=== PATIENT | female | born 2000 | race Caucasian/White ===

== ENCOUNTER 2025-01-19 04:42 | Emergency (ER) | payer OTHER, SELFPAY ==
[2025-01-19 04:52] VITALS: BP 111/74; BP 112/72; PULSE 78; PULSE 93; RESP 20; TEMP 36.7; O2SAT 100; BMI 23.6
--- NOTE | 2025-01-19 04:53 | ED_ITS ---
HPI - General Adult General Chief complaint: Nausea/Vomiting/Diarrhea Stated complaint: hx diabetes, sick all day, n/v x1 hr Time Seen by Provider: 01/19/25 04:46 Source: patient and EMS Mode of arrival: EMS Limitations: no limitations History of Present Illness ED Provider: Dr. Jessica Olsen HPI narrative: Patient comes to the emergency room complaining of nausea and vomiting all day long. Patient denies diarrhea, denies fever chills, complaining of diffuse abdominal achiness. Patient states that she is type 1 diabetic. Patient states that she usually has pretty good control of her glucose. Per EMS, glucose was in the 140s. Related Data Previous Rx's ?Medication ?Instructions ?Recorded ondansetron 4 mg disintegrating 4 mg PO Q6H PRN nausea and 01/19/25 tablet vomiting #10 tabs Allergies Allergy/AdvReac Type Severity Reaction Status Date / Time nystatin Allergy Mild Rash Verified 01/19/25 04:51 penicillin G Allergy Mild Rash Verified 01/19/25 04:51 amoxicillin Allergy Hives Verified 01/19/25 04:55 Review of Systems 2 Review of Systems: Constitutional : No Weight loss, No Fever, No Chills, No Night Sweats, No Fatigue, No Malaise ENT/Mouth : No Hearing loss, No Ear Pain, No Nasal Congestion, No Sinus Pain, No Hoarseness, No sore throat, No Rhinorrhea, No Swallowing Difficulty Eyes: No Eye Pain, No Swelling, No Redness, No Foreign Body, No Discharge, No Vision Changes Cardiovascular : No Chest Pain, No SOB, No Dyspnea on Exertion, No Orthopnea, No Edema, No Palpitations Respiratory : No Cough, No Sputum, No Wheezing, No Smoke Exposure, No Dyspnea Gastrointestinal : Complaining of nausea and vomiting, no diarrhea No Constipation, No abdominal Pain, No Hematochezia, No Melena Genitourinary : no irregular bleeding, No Dysuria, No Urinary Frequency, No Hematuria, No Urinary Incontinence, No Urgency, No Flank Pain, No Urinary Flow Changes, No Hesitancy Musculoskeletal : No joint pain, No Myalgias, No Joint Swelling Skin : No Skin Lesions, No rash Neuro : No Weakness, No Numbness, No Paresthesias, No Loss of Consciousness, No Dizziness, No Headache Psych : No Anxiety/Panic, No Depression, No SI/HI/AH/VH, No Social Issues, Heme/Lymph: No Bruising, No Bleeding,No Lymphadenopathy Endocrine : No Polyuria, No Polydipsia, No Temperature Intolerance [facility] Past Medical History Medical History (Updated 01/19/25 @ 05:58 by Jessica Olsen MD) Hypothyroidism Type 1 diabetes Social History Social History Advance Directives: No Do you have a plan to hurt others: No Plan Physical Exam ED Vital Signs: Vital Signs - 24 hr 01/19/25 04:52 Temperature 98.0 F Pulse Rate 93 Respiratory Rate 20 Blood Pressure 111/74 Pulse Oximetry 100 Oxygen Delivery Method Room Air BMI result Body Mass Index 23.6 Const Other: Appearance: Alert. Oriented X3. Seems very uncomfortable, nauseous Eyes: Pupils equal, round and reactive to light. ENT: Pharynx normal. Neck: Normal inspection. Neck supple. No lymph nodes noted. No crepitus CVS: Normal heart rate and rhythm. Pulses normal. Normal S1 and S2 Respiratory: No respiratory distress. Breath sounds normal. No Wheezing. No rales Abdomen: Soft and nontender. No rigidity. No distention. Skin: Skin warm and dry. Normal skin color. Normal skin turgor. Extremities: No lower extremity edema. No Lacerations. No Rash Neuro: Oriented X 3. No motor deficit. No sensory deficit. Moving all extremities. No slurred speech. CN 2 through 12 grossly intact Psych: calm, cooperative, normal affect Course Course Course Narrative: All Of patient's labs pending Patient receiving IV fluids and Compazine Medications Administered Discontinued Medications Generic Name Dose Route Start Last Admin Trade Name Freq PRN Reason Stop Dose Admin Sodium Chloride 1,000 mls @ 999 mls/hr 01/19/25 04:51 01/19/25 05:01 Ns IVCONT 01/19/25 05:51 999 mls/hr .Q1H1M ONE Administration Prochlorperazine Edisylate 10 mg 01/19/25 04:52 01/19/25 05:01 Prochlorperazine Edisylate 10 Mg/2 Ml Vial IVPUSH 01/19/25 04:53 10 mg ONCE ONE Administration Medical Decision Making Medical Decision Making [facility] Narrative: My interpretation of labs: Patient's white blood cell count 15, likely reactive leukocytosis. No significant abnormality and chemistry, anion gap closed, glucose 125, magnesium normal, lipase normal, hCG negative. Beta hydroxybutyrate 0.69, patient was hydrated patient's serology tested positive for COVID-19 Patient states that after the IV hydration she feels much better. Patient requesting to be discharged home. I discussed with the patient being medicated with Paxlovid. Patient declined. Differential Diagnosis Differential Diagnoses: The differential diagnosis associated with the presentation includes (DKA, viral syndrome, as above) Admission/Observation Consideration of admission/observation: Escalation of care including admission/observation considered (Given patient's past medical history and initial presentation, observation was considered) Lab Data MDM Lab Attestation statement: I reviewed the patient's lab results. 01/19/25 05:06 01/19/25 05:06 Labs: Lab Results 01/19/25 Range/Units 05:06 WBC 15.0 H (4.8-10.8) X10*3/uL RBC 5.02 (4.20-5.50) X10*6/uL Hgb 15.5 (12.0-16.0) g/dl Hct 44.0 (37.0-47.0) % MCV 87.6 (80.0-98.0) fL MCH 30.9 (27.0-33.0) pg MCHC 35.2 H (31.0-35.0) g/dl RDW 12.5 (11.0-16.0) % Plt Count 341 (160-400) X10*3/uL MPV 9.8 (9.4-12.3) fL Immature Gran % (Auto) 0.4 (0.0-0.4) % Neut % (Auto) 85.5 H (45-73) % Lymph % (Auto) 8.3 L (20-40) % Yates % (Auto) 5.2 (2-11) % Eos % (Auto) 0.5 (0-4) % Baso % (Auto) 0.1 (0-2) % Lymph # (Auto) 1.3 (1.2-4.9) X10*3/uL Yates # (Auto) 0.8 (0.1-1.2) X10*3/uL Eos # (Auto) 0.1 (0.0-0.4) X10*3/uL Baso # (Auto) 0.0 (0.0-0.2) X10*3/uL Abs Immat Gran (auto) 0.06 H (0.00-0.03) X10*3/uL Absolute Neuts (auto) 12.8 H (2.0-8.3) x10*3/uL Absolute Nucleated RBC 0.000 (0.0-0.012) X10*3/uL Nucleated RBC % (auto) 0.0 (0.0-0.2) /100WBC Sodium 138 (135-145) mmol/L Potassium 3.8 (3.3-5.1) mmol/L Chloride 105 (96-108) mmol/L Carbon Dioxide 21 L (22-29) mmol/L Anion Gap 16 (12-20) BUN 9 (9-16) mg/dL Creatinine 0.84 (0.5-1.4) mg/dL Estim Creat Clear Calc 78.2 Estimated GFR > 60 Random Glucose 125 H (60-115) mg/dL Calcium 9.6 (8.4-10.2) mg/dL Magnesium 1.6 (1.6-2.6) mg/dL Total Bilirubin 1.0 (0.0-1.0) mg/dL Direct Bilirubin 0.4 (0.0-0.5) mg/dL AST 30 (5-31) U/L ALT 21 (0-31) U/L Alkaline Phosphatase 83 (39-117) U/L Total Protein 7.8 (6.5-8.0) g/dL Albumin 4.2 (3.5-5.0) g/dL Lipase 36 (8-78) U/L Beta-Hydroxybutyrate 0.69 H (0.02-0.27) mmol/L Beta HCG, Quant < 2 mIU/mL Ethyl Alcohol < 10 mg/dL Influenza Type A (PCR) NEGATIVE (Negative) Influenza Type B (PCR) NEGATIVE (Negative) RSV RNA Qual (PCR) NEGATIVE (Negative) SARS-CoV-2 RNA (RT-PCR) POSITIVE A (Negative) Critical Care Time Critical Care Time Critical Care Time: Yes Total Critical Care Time: 60 Attestation: I have personally provided critical care time. Time includes review of lab data, radiology results, discussion with consultants, and monitoring for potential decompensation. Intervention performed as documented. Discharge Plan Discharge Clinical Impression: COVID-19, Acute dehydration, Nausea & vomiting Patient Disposition: Home, Self-Care Instructions: Dehydration (ED), Acute Nausea and Vomiting (ED), COVID-19 (Coronavirus Disease 2019) (ED) Additional Instructions: Please follow-up with your primary care physician tomorrow. If you have any worsening or new symptoms, please return to the emergency room or call 911 Prescriptions: New ondansetron 4 mg tablet,disintegrating 4 mg PO Q6H PRN (Reason: nausea and vomiting) Qty: 10 0RF Stand Alone Forms: Work/School Release Print Language: Serbian
[2025-01-19] MEDS: Prochlorperazine Edisylate 10 MG/2 ML VIAL IVPUSH (05:01)
[2025-01-19] MEDS: 0.9 % Sodium Chloride 1,000 ML 999 ML IVCONT (05:01)
[2025-01-19 05:09] LABS: Venous Blood Gas Refer to POC result
[2025-01-19 05:10] LABS: MANUAL DIFF FLAG NO
[2025-01-19 05:11] LABS: Basophils Percent Auto 0.1 % (0-2); Eosinophils Absolute Auto 0.1 X10*3/uL (0.0-0.4); Eosinophils Percent Auto 0.5 % (0-4); Hemoglobin 15.5 g/dl (12.0-16.0); Imm Gran Abs Auto 0.06 X10*3/uL (0.00-0.03); Imm Gran Pct Auto 0.4 % (0.0-0.4); Lymphocytes Absolute Auto 1.3 X10*3/uL (1.2-4.9); Lymphocytes Percent Auto 8.3 % (20-40); Mean Corpuscular HGB Conc 35.2 g/dl (31.0-35.0); Mean Corpuscular Hemoglobin 30.9 pg (27.0-33.0); Mean Corpuscular Volume 87.6 fL (80.0-98.0); Mean Platelet Volume 9.8 fL (9.4-12.3); Monocytes Absolute Auto 0.8 X10*3/uL (0.1-1.2); Monocytes Percent Auto 5.2 % (2-11); Neutrophils Absolute Auto 12.8 x10*3/uL (2.0-8.3); Neutrophils Percent Auto 85.5 % (45-73); Platelet Count 341 X10*3/uL (160-400); Red Blood Count 5.02 X10*6/uL (4.20-5.50); Red Cell Distribution Width 12.5 % (11.0-16.0)
[2025-01-19 05:34] LABS: Beta-Hydroxybutyrate 0.69 mmol/L (0.02-0.27)
[2025-01-19 05:36] LABS: Alanine Aminotransferase 21 U/L (0-31); Albumin Level 4.2 g/dL (3.5-5.0); Alkaline Phosphatase 83 U/L (39-117); Anion Gap 16 (12-20); Aspartate Amino Transferase 30 U/L (5-31); Bilirubin Direct 0.4 mg/dL (0.0-0.5); Blood Urea Nitrogen 9 mg/dL (9-16); Calcium 9.6 mg/dL (8.4-10.2); Carbon Dioxide 21 mmol/L (22-29); Chloride 105 mmol/L (96-108); Creatinine Clr Calc Pharmacy 78.2; Estimated Glomerular Filt Rate > 60; Ethanol < 10 mg/dL; Glucose Random 125 mg/dL (60-115); HCG Quantitative < 2 mIU/mL; Lipase 36 U/L (8-78); Magnesium 1.6 mg/dL (1.6-2.6); Potassium 3.8 mmol/L (3.3-5.1); Sodium 138 mmol/L (135-145); Total Protein 7.8 g/dL (6.5-8.0)
--- OUTSIDE RECORDS SUMMARY | 2025-01-19 05:47 | XMS_ITS | Clinical Summary ---
Author Organization [facility] Address [address] [place] [id number] Care Team Providers Care Android Platform Developer Name Role Phone Elias, Meseret Unavailable [phone] Jihan Em DO Primary Care Provider [phone] Elia Dsouza MD Unavailable Allergies Active Allergy Reactions Criticality Noted Date Comments Amoxicillin Hives Medium 09/24/2022 Nystatin Hives Medium 12/22/2015 Medications Continuous Blood Gluc Sensor (DEXCOM G6 SENSOR) USE DIRECTED AN CHANGE EVERY 10 DAYS 020 Active Insulin Infusion Pump (T:SLIM X2 INS PUMP/CONTROL-IQ) device by Does not apply route Active glucagon (EMERGENCY KIT FOR LOW BLOOD SUGAR) 1 MG injection kit 1 mg 021 Active insulin glargine (LANTUS) 100 units/mL injection vial See Instructions, Special Instructions: Up to 40 units/day, Dispense Quantity: 15 mL, Refills: 2, Entered: 12/08/20 11:29:00 EST, Dispense as Written, [id number] 021 Active insulin lispro (ADMELOG) 100 UNIT/ML injection vial See Instructions, Special Instructions: Subcutaneous, adminsiter up to 100 units daily, Dispense Quantity: 90 mL, Refills: 3, Entered: 12/08/20 11:29:00 EST, Dispense as Written, [facility][id number] 021 Active Continuous Blood Gluc Transmit (DEXCOM G6 TRANSMITTER) USE DIRECTED, CHANGE EVERY 3 MONTHS Active levothyroxine (SYNTHROID) 125 MCG tablet Take 0.5 tablets (62.5 mcg total) by mouth daily Active clobetasol propionate 0.05 % topical scalp solution Apply 1 application topically 2 (two) times a day 50 mL 1 022 Active BAQSIMI One Pack 3 MG/DOSE nasal powder Active albuterol sulfate (VENTOLIN HFA) 108 (90 Base) MCG/ACT inhalation aerosol Inhale 1 puff every 4 (four) hours as needed for wheezing or shortness of breath 8 g 023 Active fluticasone propionate (FLOVENT HFA) 110 MCG/ACT inhalation aerosolIndicatio ns:Subacute cough Inhale 2 puffs 2 (two) times a day . Rinse mouth after use. 12 g 023 Active fluconazole (DIFLUCAN) 150 MG tablet Take 1 tablet (150 mg) by mouth. If symptoms continue after 72 hours take second dose 2 tablet Active Additional Information Patient not taking.Reported on 10/10/2024 benzonatate 100 MG capsuleIndicatio ns:Cough Take 1 capsule (100 mg total) by mouth every 8 (eight) hours 21 capsule Active clindamycin phosphate 1 % topical solution APPLY TO AFFECTED AREA TWICE A DAY 60 mL 024 Active lisinopril 2.5 MG tablet Take 1 tablet (2.5 mg total) by mouth daily 90 tablet 3 024 Active TRI-ESTARYLLA 0.18/0.215/0.25 MG-35 MCG tabletsIndicatio ns:Encounter for surveillance of contraceptive pills TAKE 1 TABLET BY MOUTH EVERY DAY 84 tablet 3 025 Active sertraline 50 MG tablet Take 1 tablet (50 mg total) by mouth daily 90 tablet 1 025 Active norgestimate-eth inyl estradiol (TRI-ESTARYLLA) 0.18 mg/0.035 mg, 0.215 mg/0.035 mg and 0.25 mg/0.035 mg tabletsIndicatio ns:Encounter for surveillance of contraceptive pills Take 1 tablet by mouth daily 84 tablet 3 024 2024 Discontinued sertraline (ZOLOFT) 50 MG tablet TAKE 1 TABLET BY MOUTH EVERY DAY 90 tablet 1 024 2024 Discontinued(R yuan) Active Problems Problem Noted Date Diagnosed Date Asthma, mild intermittent, well-controlled 07/18 Type 1 diabetes mellitus without complications 1 Overview (06/26/2020): Last Assessment & Plan: Managed by [facility] endocrin Adjustment disorder with mixed anxiety and depre ssed mood 09/04/2015 Overview (06/26/2020): Last Assessment & Plan: Doing well on sertraline 100mg. She continues to see Veronica Herr Q2-3 weeks, more often when needed. We discussed decreasing her dose of sertraline possibly this summer, if things continue to go well. Jeronimo's disease Resolved Problems Problem Noted Date Diagnosed Date Resolved Date Uncontrolled type 1 diabetes mellitus with hyperglycemia 06/26/2020 07/18/2024 Depression 07/18/2024 Diabetes mellitus 06/26/2020 Overview (12/22/2015): TYPE 1, DIAGNOSED 12/02/2007 Thyroid disease 07/18/2024 Encounters Date Type Department Care Team Description 01/01/2025 Refill [facility] [address] [place] [phone] Jihan Em DO 12/26/2024 Refill [facility] [address] [place] [address], [place] [phone] Rinku Bobby DO Encounter for surveillance of contraceptive pills 11/23/2024 9:00 AM EST Nutrition [facility] - [address] [phone] Una Parra MD Henzy, Beryl, RD Type 1 diabetes mellitus without complications (HCC) (Primary Dx); Jeronimo's disease; Encounter for dietary counseling and surveillance 11/23/2024 Refill [facility] [address], [place] [phone] Jihan Em, from Last 3 Months Immunizations Name Administration Dates Next Due DTaP, Unspecified 01/09/2003, 9,1998,05/19,1998 H1N1 All Forms 09/30/2009 H1N1 Inj 09/30/2009 HPV Quadrivalent 03/26/2013,09/19/2012, 2 Hep A, 2 Dose 09/09/2016 Hep B, Unspecified 1998,1998, 998 Hepatitis A 07/18/2024 Hepatitis B, Pediatric/Adolescent, PF 1998 ,1998,1998 HiB 07/09/1999, 8,1998,03/14 IPV 01/09/2003, 9,1998,03/14 Influenza (Flublok), Egg Missael e, Quadrivalent, Preservative Free 01/09/2021 Influenza (Flucelvax), Egg F ree, Quadrivalent with Preservative 07/28/2017,09/09/2016,09/03/2015,08/02,12/14/2013,09/19/2012,11/12/2010 ,08/01/2009 Influenza TIV (IM) 08/28/2015 Influenza, Quadrivalent, Pre servative Free 08/08/2019,09/25/2018 Influenza, Split Virus, Triv alent with Preservative 07/28/2017,09/09/2016 Influenza, Trivalent, Preser vative Free 11/12/2010,08/01/2009 J&J Sondra (Covid-19) Adeno virus Vaccine, Preservative Free 08/03/2021 MMR 01/09/2003,01/27/1999 Meningococcal MCV4P 12/03/2010 Meningococcal, Unspecified 09/03/2015 TDAP 04/14/2023,12/03/2010 Varicella 07/14/2012,01/27/1999 Family History Medical History Relation Name Comments No Known Problems Brother 1 No Known Problems Brother 2 No Known Problems Father HIV Mother Cancer Paternal Grandfather Bladder Breast cancer Paternal Grandmother Relation Name Status Comments Brother 1 Alive Brother 2 Alive Father Alive Maternal Grandmother Alive Mother Alive Paternal Grandfather Alive Paternal Grandmother Alive Social History Tobacco Use Types Packs/Day Years Used Date Smoking Tobacco: Every Day Passive Smoke Exposure: Never Smokeless Tobacco: Never Tobacco Cessation:Ready to Q uit: Not Asked; Counseling Given: Not Answered Passive Exposure Comments:Vaping Alcohol Use Standard Drinks/Week Comments No 0 (1 standard drink = 0.6 oz pur e alcohol) Housing Stability - SDOH Screener Answer Date Recorded What is your living situation today? Steady hous ing 07/18/2024 Do you need help with Housing/Skilled Nursing resources? Not on file 07/18/2024 Patient indicated no issues from the most recent SDOH questionnaire Not on file 07/18/2024 Homeless diagnosis active in problem list or in an encounter in the past year? Not on file 07/18/2024 Health Literacy - SDOH Screener Answer Date Recorded Do you ever need help readin g or understanding information about your medical conditions? No 07/18/2024 Patient indicated no issues from the most recent THRIVE questionnaire Not on file 07/18/2024 Oral Health - SDOH Screener Answer Date Recorded Was there a time you needed dental care in the last 12 months but was not received? No 07/18/2024 Patient indicated no issues from the most recent THRIVE questionnaire Not on file 07/18/2024 Transportation - SDOH Screener Answer D ate Recorded Do you have trouble getting transportation to medical appointments? No 07/18/2024 Do you need help with Transp ortation to medical appointments? Not on file 07/18/2024 Patient indicated no issues from the most recent SDOH questionnaire Not on file 07/18/2024 Food Insecurity - SDOH Screener Answer Date Recorded Within the past 12 months, t he food you bought just didn't last and you didn't have money to get more? Sometimes true Within the past 12 months, y ou worried whether your food would run out before you got money to buy more? Never true 2023 Do you need help with Food resources? Not on shimon e 07/18/2024 Patient indicated no issues from the most recent SDOH questionnaire Not on file 07/18/2024 Depression Answer Date Recorded PHQ-9 Total Score 3 07/18/2024 [place] Depression Scale Score Not o n file 07/18/2024 EPDS: The thought of harming myself has occurred to me Not on file 07/18/2024 PHQ-A: In the past year have you felt depressed or sad most days, even if you felt okay sometimes? Not on file 07/18/2024 PHQ-A: If you are experienci ng any of the problems on this form, how difficult have these problems made it for you to do your work, take care of things at home or get along with other people? Not on file 07/18/2024 PHQ-A: Has there been a time in the past month when you have had serious thoughts about ending your life? Not on file 06/29 PHQ-A: Have you ever, in you r whole life, tried to kill yourself or made a suicide attempt? Not on file 07/18/2024 PHQ9/A: Thoughts that you wo uld be better off , or of hurting yourself in some way? No 07/18/2024 Care Giving - SDOH Screener Answer Date Recorded Do you have trouble taking c are of a child, family member or friend? No 07/18/2024 Do you need help with Childcare/Daycare? Not on file 07/18/2024 Do you need help with Elder Care Not on file 07/18/2024 Patient indicated no issues from the most recent SDOH questionnaire Not on file 07/18/2024 Employment - SDOH Screener Answer Date Recorded Are you currently unemployed and looking for a j ob? No 07/18/2024 Are you or your parent/guard gabrielle currently unemployed and looking for a job? (age <= 21) Not on file 07/18/2024 Patient indicated no issues from the most recent THRIVE questionnaire (<22) Not on file 07/18/2024 Patient indicated no issues from the most recent THRIVE questionnaire (22+) Not on file 07/18/2024 Affording Medications - SDOH Screener Answer Date Recorded Do you have trouble paying for medications? Yes 07/18/2024 Do you need help with Paying for Medicine resour rubio? Not on file 07/18/2024 Patient indicated no issues from the most recent SDOH questionnaire Not on file 07/18/2024 Utilities - SDOH Screener Answer Date R ecorded Do you have trouble paying y our heating and/or electricity bill? Yes 07/18/2024 Do you need help with Utilities? Not on file 07/18/2024 Patient indicated no issues from the most recent SDOH questionnaire Not on file 07/18/2024 Social Isolation - SDOH Screener Answer Date Recorded Are you dissatisfied with ho w often you see or talk to people that you care about and feel close to? (For example: talking to friends on the phone, visiting friends or family, going to latter-day or club meetings) No 07/18/2024 Patient indicated no issues from the most recent THRIVE questionnaire Not on file 07/18/2024 Adolescent Depression Answer Date Recor ded PHQ-9 Total Score 3 07/18/2024 [place] Depression Scale Score Not o n file 07/18/2024 EPDS: The thought of harming myself has occurred to me Not on file 07/18/2024 PHQ-A: In the past year have you felt depressed or sad most days, even if you felt okay sometimes? Not on file 07/18/2024 PHQ-A: If you are experienci ng any of the problems on this form, how difficult have these problems made it for you to do your work, take care of things at home or get along with other people? Not on file 07/18/2024 PHQ-A: Has there been a time in the past month when you have had serious thoughts about ending your life? Not on file 06/29 PHQ-A: Have you ever, in you r whole life, tried to kill yourself or made a suicide attempt? Not on file 07/18/2024 PHQ9/A: Thoughts that you wo uld be better off , or of hurting yourself in some way? No 07/18/2024 Comments No Sex and Gender Information Value Date Recorded Sex Assigned at Female 09/02/2022 11:55 AM EDT Legal Sex Female 9:22 PM EDT Gender Identity Female 09/02/2022 11:55 AM EDT Sexual Orientation _I choose not to answer 08/21 /2024 12:22 PM EDT Last Filed Vital Signs Vital Sign Reading Time Taken Comments Blood Pressure 115/62 10/10/2024 12:54 PM EST Pulse 79 10/10/2024 12:54 PM EST Temperature 37.4 ??C (99.3 ??F) 08/13/2024 12:17 PM E DT Respiratory Rate 16 08/13/2024 12:17 PM EDT Oxygen Saturation 98% 10/10/2024 12:54 PM EST Inhaled Oxygen Concentration - - Weight 53.1 kg (117 lb) 10/10/2024 12:54 PM EST Height 149.9 cm (4' 11 ) 10/10/2024 12:54 PM EST Body Mass Index 23.63 10/10/2024 12:54 PM EST Plan of Treatment Upcoming Encounters Date Type Department Care Team (Late st Contact Info) Description 01/21/2025 1:30 PM EST Office Visit [facility] [address] [place] [phone] Jazmyne Dubose NP [address] [place] [phone] 01/29/2025 3:30 PM EST Office Visit [facility] [address], [place] [address] Jojo Magallanes NP [address] [place] [address] 07/22/2025 2:00 PM EDT Office Visit [facility] [address] [place] [phone] Jazmyne Dubose NP [address] [place] [address] [place] [address] Health Maintenance Due Date Last Done Comments Diabetes Retinopathy Screening 2016 Hepatitis B Screening 2016 COVID-19 Vaccine ( season) 2024 08/03/2021 Influenza Vaccine (#1) 2024 , 08/08/2019, 09/25/2018, Additional history exists Diabetes A1c Monitoring 01/18/2025 07/18/20 24, 07/25/2023, 04/07/2022, Additional history exists Annual Physical 07/18/2025 07/18/2024, 03/28, 04/02/2022, Additional history exists Diabetes Foot Screening 07/18/2025 07/18/2024 Pneumococcal Vaccines 0-64 yrs (includes High Risk) (1 of 2 - PCV) 07/18/2025 Postponed from 2004 (Patient Declined) Diabetes LDL Screening 07/19/2025 07/19/2024, 2022 Diabetes Nephropathy Screening 08/02/2025 08/02/2024, 07/18/2024 Diabetes eGFR Screening 10/10/2025 10/10/20 24, 07/19/2024, 07/28/2022, Additional history exists Cervical Cancer Screening by Pap 07/18/2027 07/18/2024, 11/09/2019 DTaP,Tdap,and Td Vaccines (8 - Td or Tdap) 04/14/2033 04/14/2023, 12/03/2010, 01/09/2003, Additional history exists HIB Vaccines Completed 07/09/1999, 06/28, 1998, Additional history exists Hepatitis A Vaccine Completed 07/18/2024, 6 Procedures Procedure Name Priority Date/Time Associated Diagnosis Comments AMB REFERRAL TO NUTRITION SERVICES First Available/Marc adler 11/23/2024 11:53 AM EST Type 1 diabetes (HCC) BASIC METABOLIC PANEL Routine 10/10/2024 1:31 PM EST Type 1 diabetes (HCC) LIPID PANEL Routine 07/19/2024 10:12 AM EDT Routine general medical examination at a health care facility MICROALBUMIN WITH CREAT, RANDOM URINE Routine 07/18/2024 2:45 PM EDT Type 1 diabetes mellitus without complications (HCC) LIQUID-BASED PAP TEST Routine 07/18/2024 2:45 PM EDT Encounter for screening for cervical cancer POCT GLYCOSYLATED HEMOGLOBIN (HGB A1C) Routine 07/18/2024 2:11 PM EDT Type 1 diabetes mellitus without complications (HCC) DIABETIC FOOT EXAM Routine 07/18/2024 2: 00 PM EDT Type 1 diabetes mellitus without complications (HCC) from Last 3 Months or Most Recently Relevant to Health Maintenance Results * Outpatient referral to Nutrition Services (11/23/2024 11:53 AM EST) Una Parra MD OUTPATIENT REFERRAL ORDERAB LES Final Result * (ABNORMAL) Basic metabolic panel (10/10/2024 1:31 PM EST) Sodium 135(L) 136 - 145 mEq/L 10/10/2024 7:38 PM [facility] Potassium 3.6 3.5 - 5.1 mEq/L 10/10/2024 7:38 PM [facility] Chloride 103 98 - 109 mEq/L 10/10/2024 7:38 PM [facility] CO2 26 20 - 31 mEq/L 10/10/2024 7:38 PM [facility] Anion Gap 6 4 - 15 mEq/L 10/10/2024 7:38 PM [facility] Glucose 111(H) 70 - 100 mg/dL 10/10/2024 7:38 PM [facility] Creatinine 0.84 0.50 - 1.00 mg/dL 10/10/2024 7:38 PM [facility] eGFR (Female) >60 60 - 115 mL/min 10/10/2024 7:38 PM [facility] BUN 8(L) 9 - 23 mg/dL 10/10/2024 7:38 PM [facility] Calcium 9.5 8.7 - 10.4 mg/dL 10/10/2024 7:38 PM [facility] Blood Venipuncture / Unknown 10/10/2024 1:31 PM EST 10/10/2024 1:31 PM EST us Una Parra MD LAB BLOOD ORDERABLES Final Result Performing Organization Address [facility] de Phone Number [facility] [address] [place] [address] * (ABNORMAL) Lipid panel (07/19/2024 10:12 AM EDT) Cholesterol 196 <200 mg/dL 07/19/2024 2:43 PM EDT [facility] Triglycerides 69 <150 mg/dL 07/19/2024 2:43 PM EDT [facility] HDL 77.1 >=60.0 mg/dL 07/19/2024 2:43 PM EDT [facility] LDL Calculated 105(H) 0 - 100 mg/dL 07/19/2024 2:43 PM EDT [facility] Cardiac Risk Factor 2.5 0.0 - 4.4 07/19/2024 2:43 PM EDT [facility] Blood Venipuncture / Unknown 07/19/2024 10:12 AM EDT 07/19/2024 10:12 AM EDT Narrative [facility] - 07/19/2024 2:43 PM EDT Cardiac Risk Factor: ?Males ? Females 2x Average Risk ?9.6 ?7.1 3x Average Risk ? 23.4 ? 11.0 us Jazmyne Dubose STUDENT ACTIVITIES DIRECTOR LAB BLOOD ORDERABLES Final Re sult Performing Organization Address [facility] Co de Phone Number [facility] [address] [place] [address] * Liquid-Based Pap Test (07/18/2024 2:45 PM EDT) Case Report Gynecologic Cytology ?Case: [id number] ? Authorizing Provider: ??Jazmyne Dubose NP ?Collected: ? 07/18/2024 1445 ? Ordering Location: ? [facility] ?Received: ?07/18/2024 1445 ? Group ? First Screen: ?Randi Honeycutt ? Specimen: ?Liquid-Based Pap, Screening, Cervix, Cloudy ? 07/31/2024 12:01 PM EDT [facility] Embedded Images 12:01 PM EDT [facility] Interpretation NEGATIVE FOR INTRAEPITHELIAL LESION OR MALIGNANCY 07/31/2024 12:01 PM EDT [facility] Other Findings Interpretation Performed at [facility] site of [facility] 07/31/2024 12:01 PM EDT [facility] Specimen Adequacy Satisfactory for evaluation, endocervical/alcantar sformation zone component present 07/31/2024 12:01 PM EDT [facility] Clinical Information Z12.4 Encounter for screening for cervical cancer 07/31/2024 12:01 PM EDT [facility] HPV Reflex? HPV High Risk Reflex if Atypical (age >21) 07/31/2024 12:01 PM EDT [facility] Additional Information The Pap test is a generally effective screening test for squamous cervical cancer and its precursors. However, both false negative and false positive results occur. Results are most reliable when an adequate sample is evaluated on a regular repetitive basis and clinically correlated. Suspicious signs or symptoms may warrant follow-up studies regardless of Pap test findings. This report may contain complex medical terminology and you should discuss this report with the clinician who ordered this test to ensure appropriate understanding of the findings. 07/31/2024 12:01 PM EDT [facility] Genital Cervix uteri structure / Unknown Collection / Unknown 07/18/2024 2:45 PM EDT 07/18/2024 2:45 PM EDT Jazmyne Dubose NP PATHOLOGY/CYTOLOGY ORDERABLES Final Result [facility] [place] [address] * (ABNORMAL) Microalbumin with Creat, Random Urine (07/18/2024 2:45 PM EDT) Microalb, Ur 22.4(H) 0.0 - 1.9 mg/dL 07/18/2024 5:58 PM EDT [facility] Creatinine, Ur 37.0 20.0 - 400.0 mg/dL 07/18/2024 5:58 PM EDT [facility] Microalb Creat Ratio 605.41(H) 0.00 - 24.90 mcg/mg 07/18/2024 5:58 PM EDT [facility] Urine Collection / Unknown 07/18/2024 2:45 PM EDT 07/18/2024 2:45 PM EDT Jazmyne Dubose NP URINE ORDERABLES Final Result [facility] [address] [place] [address] * (ABNORMAL) POCT glycosylated hemoglobin (Hb A1C) (07/18/2024 2:11 PM EDT) Hemoglobin A1C, POC 7.1(H) 4-6% Comment: %HbA1c : Interpretation of results 4 - 6 ??: Non-Diabetic Range 7 ?: ADA Target 8 - 12 : Above ADA Target ADA ?: [place] [employer] Blood 07/18/2024 2:11 PM EDT us Jazmyne Dubose NP POINT OF CARE TEST ORDERABLES Final Result * Diabetic Foot Exam (07/18/2024 2:00 PM EDT) Narrative Jazmyne Dubose NP - 07/18/2024 2:00 PM EDT Jazmyne Dubose NP ? 07/18/2024 ??4:00 PM Diabetic Foot Exam Performed by: Jazmyne Dubose NP Authorized by: Jazmyne Dubose NP ?? Does the patient have numbness or tingling?: No ?? Right Foot Rt Dorsalis pedis: ??2+ Monofilament test abnormal?: No ?? Sites tested: ??8 Sensed: ??8 Vibratory sensation abnormal?: No ?? Visual inspection (including web spaces) abnormal?: No ?? Left Foot Lt Dorsalis pedis: ??2+ Monofilament test abnormal?: No ?? Sites tested: ??8 Sensed: ??8 Vibratory sensation abnormal?: No ?? Visual inspection (including web spaces) abnormal?: No ?? Patient received patient education ?? us Jazmyne Dubose NP PROCEDURE/MINOR SURGICAL ORDE RABLES Final Result from Last 3 Months or Most Recently Relevant to Health Maintenance Insurance [facility] [employer] OTHER BILL TO EMPLOYER [email or web address] [facility] [employer] [facility] Care Teams Android Platform Developer Relationship Specialty Start Date End Date Meseret Griffin DO PCP - Family Medicine 03/09/15 Jihan Em DO [address] [place] [id number] PCP - General Family Medicine 01/08/21 Elia Dsouza [place] [address] Physician Orthopedic Surgery 04/21/23
--- OUTSIDE RECORDS SUMMARY | 2025-01-19 05:47 | XMS_ITS | Encounter Summary ---
Author Organization [facility] Address [address] [place] [address] Care Team Providers Care Office Rental Clerk Name Role Phone Elias, Meseret Unavailable Jihan Em DO Primary Care Provider [phone] Elia Dsouza MD Unavailable Reason for Visit * Reason Comments Medication Refill Encounter Details Date Type Department Care Team (Late st Contact Info) Description 12/26/2024 Refill [facility] [address], [place] [phone] Rinku Bobby DO [address] [address] Encounter for surveillance of contraceptive pills Social History Tobacco Use Types Packs/Day Years Used Date Smoking Tobacco: Every Day Passive Smoke Exposure: Never Smokeless Tobacco: Never Passive Exposure Comments:Tamika ping Alcohol Use Standard Drinks/Week Comments No 0 (1 standard drink = 0.6 oz pur e alcohol) Housing Stability - SDOH Screener Answer Date Recorded What is your living situation today? Steady hous ing 07/18/2024 Do you need help with Housing/Assisted resources? Not on file 07/18/2024 Patient indicated [...] Date Recorded PHQ-9 Total Score 3 07/18/2024 [place] Depression Scale Score Not o n file [...] phone, visiting friends or family, going to mandaen or club meetings) No 07/18/2024 Patient indicated no issues from the most recent THRIVE questionnaire Not on file 07/18/2024 Adolescent Depression Answer Date Recor ded PHQ-9 Total Score 3 07/18/2024 [place] Depression Scale Score Not o n file [...] Sexual Orientation _I choose not to answer 07/18 12:22 PM EDT documented as of this encounter Miscellaneous Notes * Telephone Encounter - Shira Alberto - 12/27/2024 2:01 PM EST Scheduled annual w/ Jojo for 01/2025 please pend refill * Telephone Encounter - Hemalatha Vance - 12/26/2024 3:33 PM EST I called and left voicemail message that an appt is needed before refilling medication. documented in this encounter Plan of Treatment Upcoming Encounters Date Type Department Care Team (Late st Contact Info) Description 01/21/2025 1:30 PM EST Office Visit [facility] [address] [place] [phone] Jazmyne Dubose NP [address] [address] 01/29/2025 3:30 PM EST Office Visit [facility] [address], [place] [address] Jojo Magallanes, MONOGRAM TECHNICIAN [address] [place] [address] 07/22/2025 2:00 PM EDT [facility] [address] [place] [phone] Jazmyne Dubose, MONOGRAM TECHNICIAN [address] [address] documented as of this encounter Visit Diagnoses Diagnosis Encounter for surveillance of contraceptive pills documented in this encounter Care Teams Office Rental Clerk Relationship Specialty Start Date End Date Meseret Griffin DO PCP - Family Medicine 03/09/15 Jihan Em DO [address] [place] [address] PCP - General Family Medicine 01/08/21 Elia Dsouza MD [place] [address] Physician Orthopedic Surgery 04/21/23 documented as of this encounter
--- OUTSIDE RECORDS SUMMARY | 2025-01-19 05:47 | XMS_ITS | Encounter Summary ---
Author Organization [facility][Note 3] Address [address] [place] [address] Care Team Providers Care Tubing Machine Operator Name Role Phone EliasMeseret matta Unavailable [phone] Jihan Em DO Primary Care Provider [phone] Elia Dsouza MD Unavailable [phone] Reason for Visit * Reason Onset Date Comments Medication Refill 01/01/2025 Encounter Details Date Type Department Care Team (Late st Contact Info) Description 01/01/2025 Refill [facility] [address] [place] [address] Jihan Em DO [address] [place] [address] Social History Tobacco Use Types Packs/Day Years Used Date Smoking Tobacco: Every Day Passive Smoke Exposure: Never Smokeless Tobacco: Never Passive Exposure Comments:[place] Alcohol Use Standard Drinks/Week Comments No 0 (1 standard drink = 0.6 oz pur e alcohol) Housing Stability - SDOH Screener Answer Date Recorded What is your living situation today? Steady hous ing 07/18/2024 Do you need help with Housing/Residential resources? Not on file 07/18/2024 Patient indicated [...] Date Recorded PHQ-9 Total Score 3 07/18/2024 [place] Depression Scale Score Not o n file [...] phone, visiting friends or family, going to amish or club meetings) No 07/18/2024 Patient indicated no issues from the most recent THRIVE questionnaire Not on file 07/18/2024 Adolescent Depression Answer Date Recor ded PHQ-9 Total Score 3 07/18/2024 [place] Depression Scale Score Not o n file [...] encounter Miscellaneous Notes * Telephone Encounter - Jane Andrade MA - 01/01/2025 9:14 AM EST Last Visit in department: 07/18/2024 Next Visit in department: 01/21/2025 Last Annual Visit in department: 07/18/2024 No Shows in department since Last Appt: 2 The current prescription passed protocol. Last script ordered on 02/13/24 for 90/1 (quantity/refill). The attached script pended for 90/1 (quantity/refill). Actions taken: routed to provider documented in this encounter Plan of Treatment Upcoming Encounters Date Type Department Care Team (Late st Contact Info) Description 01/21/2025 1:30 PM EST Office Visit [facility] [address] [place] [phone] Jazmyne Dubose, MEDICAL EDUCATOR [address] [address] 01/29/2025 3:30 PM EST [facility] [address], [facility] [place] [address] Jojo Magallanes, MEDICAL EDUCATOR [address] [place] [address] 07/22/2025 2:00 PM EDT [facility] [address] [place] [phone] Jazmyne Dubose, SALMA [address] [place] [address] documented as of this encounter Visit Diagnoses Not on filedocumented in this encounter Care Teams Tubing Machine Operator Relationship Specialty Start Date End Date Meseret Griffin DO PCP - Family Medicine 03/09/15 Jihan Em DO [address] [place] [address] PCP - General Family Medicine 01/08/21 Elia Dsouza MD [address] [facility] [address] Physician Orthopedic Surgery 04/21/23 documented as of this encounter
--- OUTSIDE RECORDS SUMMARY | 2025-01-19 05:47 | XMS_ITS | Encounter Summary ---
Author Organization [facility] Address [address] [place] [address] Phone Care Team Providers Care Health Analytics Consultant Name Role Phone Meseret Griffin DO Primary Care Provider [phone] Reason for Visit * Reason Comments Med Refill Encounter Details Date Type Department Care Team (Late st Contact Info) Description 10/30/2020 Refill [facility] [address] [place] [address] Meseret Griffin DO [address] [place], [place] [phone] Adjustment disorder with mixed anxiety and depressed mood Social History Tobacco Use Types Packs/Day Years Used Date Smoking Tobacco: Never Smokeless Tobacco: Never Alcohol Use Standard Drinks/Week Comments No 0 (1 standard drink = 0.6 oz pur e alcohol) Hunger/Food Answer Date Recorded No 01/02/2020 Stable Housing Answer Date Recorded No 01/02/2020 Transportation Concerns Answer Date Rec orded No 01/02/2020 Hazards in Home Answer Date Recorded No 01/02/2020 Financing Utilities Answer Date Recorde d No 01/02/2020 Safety at Home Answer Date Recorded No 01/02/2020 Outside Support Answer Date Recorded No 01/02/2020 Understanding Health Concerns Answer Da te Recorded No 01/02/2020 Financing Health Concerns Answer Date R ecorded No 01/02/2020 Missing School or Work Answer Date Prakash rded No 01/02/2020 Comments Unknown Sex and Gender Information Value Date Recorded Sex Assigned at Not on file Legal Sex Female 4:50 PM EST Gender Identity Not on file Sexual Orientation Not on file documented as of this encounter Plan of Treatment Not on file documented as of this encounter Visit Diagnoses Diagnosis Adjustment disorder with mixed anxiety and depressed mood documented in this encounter Care Teams Health Analytics Consultant Relationship Specialty Start Date End Date Meseret Griffin DO [address] [place] [address] PCP - General 01/17/17 documented as of this encounter
--- OUTSIDE RECORDS SUMMARY | 2025-01-19 05:47 | XMS_ITS | Encounter Summary ---
Author Organization [facility] Address [address] [place] [address] Care Team Providers Care Underwriting Assistant Name Role Phone EliasMeseret matta Unavailable [phone] Jihan Em DO Primary Care Provider [phone] Elia Dsouza MD Unavailable [phone] Reason for Visit * Reason Comments Medication Refill Encounter Details Date Type Department Care Team (Late st Contact Info) Description 02/16/2021 Refill [facility] [address] [place] [address], [place] [phone] Luis Carlos Cifuentes MD [address] [place] [phone] Social History Tobacco Use Types Packs/Day Years Used Date Smoking Tobacco: Never Smokeless Tobacco: Never Alcohol Use Standard Drinks/Week Comments No 0 (1 standard drink = 0.6 oz pur e alcohol) Comments No Sex and Gender Information Value Date Recorded Sex Assigned at Female 09/02/2022 11:55 AM EDT Legal Sex Female 9:22 PM EDT Gender Identity Female 09/02/2022 11:55 AM EDT Sexual Orientation _I choose not to answer 07/18 12:22 PM EDT documented as of this encounter Plan of Treatment Upcoming Encounters Date Type Department Care Team (Late st Contact Info) Description 01/21/2025 1:30 PM EST Office Visit [facility] [address] [place] [address] Jazmyne Dubose, WELDING SPECIALIST 49 [facility] [address] [place] [address] 01/29/2025 3:30 PM EST Office Visit [facility] [address] [place], [facility] [place] [address] Jojo Magallanes, SALMA [address] [place] [address] 07/22/2025 2:00 PM EDT Office Visit [facility] [address] [place] [phone] Jazmyne Dubose, SALMA [address] [address] documented as of this encounter Visit Diagnoses Not on filedocumented in this encounter Additional Health Concerns Infection Onset Date Last Indicated Resolved Time PUI COVID 10/19/2021 10/19/2021 10/20/2021 8:05 PM EST PUI COVID 09/24/2022 09/24/2022 09/24/2022 4:17 PM EDT PUI COVID 08/03/2023 08/03/2023 08/03/2023 2:05 PM EDT PUI COVID 08/11/2023 08/11/2023 08/11/2023 3:56 PM EDT PUI COVID 09/28/2023 09/28/2023 09/28/2023 11:3 1 AM EDT PUI COVID 08/13/2024 08/13/2024 08/13/2024 1:54 PM EDT documented as of this encounter Care Teams Underwriting Assistant Relationship Specialty Start Date End Date Meseret Griffin DO PCP - Family Medicine 03/09/15 Jihan Em DO [address] [place] [address] PCP - General Family Medicine 01/08/21 [place] [address] Physician Orthopedic Surgery 04/21/23 documented as of this encounter
--- OUTSIDE RECORDS SUMMARY | 2025-01-19 05:47 | XMS_ITS | Encounter Summary ---
Author Organization [facility] Address [address] [place] [address] Care Team Providers Care Utility Technician Name Role Phone Elias, Meseret Unavailable Jihan Em DO Primary Care Provider [phone] Elia Dsouza MD Unavailable Reason for Visit * Reason Comments Medication Refill Encounter Details Date Type Department Care Team (Late st Contact Info) Description 02/01/2021 Refill [facility] [address] [place] [phone] Jihan Em DO [address] [place] [address] Social History Tobacco Use Types Packs/Day Years [...] encounter Miscellaneous Notes * Telephone Encounter - Karla Ardon - 02/02/2021 8:46 AM EST Requested Prescriptions Pending Prescriptions Disp Refills ??? levothyroxine (SYNTHROID) 112 MCG tablet [Pharmacy Med Name: LEVOTHYROXINE 112 MCG TABLET] 15 tablet 0 Sig: TAKE 0.5 TABLETS (56 MCG TOTAL) BY MOUTH EVERY MORNING BEFORE BREAKFAST LAST OV: 01/09/21 NEXT OV: 01/13/22 (please list for provider if any no shows or cancellations since last OV) Lab Results Component Value Date TSH 1.870 06/28/2016 Refill received from: documented in this encounter Plan of Treatment Upcoming Encounters Date Type Department Care Team (Late st Contact Info) Description 01/21/2025 1:30 PM EST [facility] [address] [place] [phone] Jazmyne Dubose NP [address] [place] [address] 01/29/2025 3:30 PM EST [facility] [address] [place] [phone] Jojo Magallanes NP [address] [place] [address] 07/22/2025 2:00 PM EDT [facility] [address] [place] [phone] Jazmyne Dubose NP [address] [place] [address] documented as of this encounter Visit Diagnoses [...] documented as of this encounter Care Teams Utility Technician Relationship Specialty Start Date End Date Meseret Griffin DO PCP - Family Medicine 03/09/15 Jihan Em DO [address] [place] [address] PCP - General Family Medicine 01/08/21 El[place] [address] Physician Orthopedic Surgery 04/21/23 documented as of this encounter
--- OUTSIDE RECORDS SUMMARY | 2025-01-19 05:47 | XMS_ITS | Encounter Summary ---
Author Organization [facility][Note 3] Address [address] [place] [address] Care Team Providers Care Mangle Operator Garments Name Role Phone EliasMeseret matta Unavailable [phone] Jihan Em DO Primary Care Provider [phone] Elia Dsouza MD Unavailable Reason for Visit * Reason Comments Medication Refill Encounter Details Date Type Department Care Team (Late st Contact Info) Description 03/25/2021 Refill [facility] [address] [place] [address], [place] [phone] Luis Carlos Cifuentes MD [address] [place] [phone] Social History Tobacco Use Types Packs/Day Years [...] Description 01/21/2025 1:30 PM EST Office Visit [facility] [address] [place] [address] Jazmyne Dubose, FOOD ASSEMBLER 49 [facility] [address] [place] [address] 01/29/2025 3:30 PM EST Office Visit [facility] [address] [place], [facility] [place] [address] Jojo Magallanes, SALMA [address] [place] [address] 07/22/2025 2:00 PM EDT Office Visit [facility] [address] [place] [phone] Jazmyne Dubose, SALMA [address] [address] documented as of this encounter Visit Diagnoses [...] documented as of this encounter Care Teams Mangle Operator Garments Relationship Specialty Start Date End Date Meseret Griffin DO PCP - Family Medicine 03/09/15 Jihan Em DO [address] [place] [address] PCP - General Family Medicine 01/08/21 El[place] [address] Physician Orthopedic Surgery 04/21/23 documented as of this encounter
--- OUTSIDE RECORDS SUMMARY | 2025-01-19 05:47 | XMS_ITS | Encounter Summary ---
Author Organization [facility] Address [address] [place] [address] Care Team Providers Care Transmission Line Engineer Name Role Phone Meseret Griffin DO Unavailable [phone] Jihan Em DO Primary Care Provider [phone] Meseret Griffin DO Primary Care Provider [phone] Elia Dsouza MD Unavailable Reason for Visit * Reason Comments Medication Refill Encounter Details Date Type Department Care Team (Late st Contact Info) Description 08/17/2020 Refill [facility] [address] [place] [address] Luis Carlos Cifuentes MD [address] [place] [address] Social History Tobacco Use Types Packs/Day Years [...] Description 01/21/2025 1:30 PM EST Office Visit [facility] [address] [place] [phone] Jazmyne Dubose, SALMA [address] [address] 01/29/2025 3:30 PM EST Office Visit [facility] [address] [place], [place] [address] Jojo Magallanes NP [address] [place] [address] 07/22/2025 2:00 PM EDT Office Visit [facility] [address] [place] [phone] Jazmyne Dubose NP [address] [place] [address] documented as of this encounter Visit Diagnoses Not on filedocumented in this encounter Additional Health Concerns Infection Onset Date Last Indicated Resolved Time PUI COVID 09/29/2020 09/29/2020 09/30/2020 11:4 6 PM EST PUI COVID 10/19/2021 10/19/2021 10/20/2021 8:05 PM EST PUI COVID 09/24/2022 09/24/2022 09/24/2022 4:17 PM EDT PUI COVID 08/03/2023 08/03/2023 08/03/2023 2:05 PM EDT PUI COVID 08/11/2023 08/11/2023 08/11/2023 3:56 PM EDT PUI COVID 09/28/2023 09/28/2023 09/28/2023 11:3 1 AM EDT PUI COVID 08/13/2024 08/13/2024 08/13/2024 1:54 PM EDT documented as of this encounter Care Teams Transmission Line Engineer Relationship Specialty Start Date End Date Meseret Griffin DO PCP - Family Medicine 03/09/15 Jihan Em DO [address] [place] [address] PCP - General Family Medicine 01/08/21 Meseret Griffin DO [address] [place] [address] PCP - General Pediatrics 12/03/20 01/07/21 El[place] [address] Physician Orthopedic Surgery 04/21/23 documented as of this encounter
--- OUTSIDE RECORDS SUMMARY | 2025-01-19 05:47 | XMS_ITS | Encounter Summary ---
Author Organization [facility] Address [address] [place] [address] Care Team Providers Care Millinery Department Manager Name Role Phone Meseret Griffin DO Unavailable [phone] Jihan Em DO Primary Care Provider [phone] Meseret Griffin DO Primary Care Provider Elia Dsouza MD Unavailable Reason for Visit * Reason Comments Medication Refill Encounter Details Date Type Department Care Team (Late st Contact Info) Description 11/18/2020 Refill [facility] [address] [place] [address] Luis Carlos Cifuentes MD [address] [place] [address] Social History Tobacco Use Types Packs/Day Years [...] PM EST Office Visit [facility] [address] [place] [phone] Jazmyne Dubose, SALMA [address] [place] [address] 01/29/2025 3:30 PM EST Office Visit [facility] [address] [place], [place] [address] Jojo Magallanes NP [address] [place] [address] 07/22/2025 2:00 PM EDT Office Visit [facility] [address] [place] [phone] Jazmyne Dubose NP [address] [place] [address] documented as of this encounter Visit Diagnoses [...] documented as of this encounter Care Teams Millinery Department Manager Relationship Specialty Start Date End Date Meseret Griffin DO PCP - Family Medicine 03/09/15 Jihan Em DO [address] [place] [address] PCP - General Family Medicine 01/08/21 Meseret Griffin DO [address] [place] [address] PCP - General Pediatrics 12/03/20 01/07/21 [place] [address] Physician Orthopedic Surgery 04/21/23 documented as of this encounter
--- OUTSIDE RECORDS SUMMARY | 2025-01-19 05:47 | XMS_ITS | Encounter Summary ---
Author Organization [facility] Address [address] [place] [address] Care Team Providers Care Sample Distributor Name Role Phone EliasMeseret matta Unavailable Jihan Em DO Primary Care Provider [phone] Elia Dsouza MD Unavailable Encounter Details Date Type Department Care Team (Late st Contact Info) Description 10/12/2024 Orders Only [facility] [address] [place] [phone] Una Parra MD [address] [place] [address] Social History Tobacco Use Types Packs/Day Years Used Date Smoking Tobacco: Every Day Passive Smoke Exposure: Never Smokeless Tobacco: Never Passive Exposure Comments:Tamika frenchg Alcohol Use Standard Drinks/Week Comments No 0 (1 standard drink = 0.6 oz pur e alcohol) Housing Stability - SDOH Screener Answer Date Recorded What is your living situation today? Steady hous ing 07/18/2024 Do you need help with Housing/Senior Living resources? Not on file 07/18/2024 Patient indicated [...] Date Recorded PHQ-9 Total Score 3 07/18/2024 [place] Depression Scale Score Not o n file [...] phone, visiting friends or family, going to restorationism or club meetings) No 07/18/2024 Patient indicated no issues from the most recent THRIVE questionnaire Not on file 07/18/2024 Adolescent Depression Answer Date Recor ded PHQ-9 Total Score 3 07/18/2024 [place] Depression Scale Score Not o n file [...] Description 01/21/2025 1:30 PM EST [facility] [address] [place] [phone] Jazmyne Dubose NP [address] [place] [address] [address] [place] [address] 01/29/2025 3:30 PM EST [facility] [address] [place] [address], [facility] [place] [address] Jojo Magallanes NP [address] [place] [address] 07/22/2025 2:00 PM EDT [facility] [address] [place] [phone] Jazmyne Dubose, SALMA [address] [address] documented as of this encounter Visit Diagnoses Not on filedocumented in this encounter Care Teams Sample Distributor Relationship Specialty Start Date End Date Meseret Griffin DO PCP - Family Medicine 03/09/15 Jihan Em DO [address] [place] [address] PCP - General Family Medicine 01/08/21 El[place] [address] Physician Orthopedic Surgery 04/21/23 documented as of this encounter
--- OUTSIDE RECORDS SUMMARY | 2025-01-19 05:47 | XMS_ITS | Encounter Summary ---
Author Organization [facility] Address [address] [place] [address] Phone Care Team Providers Care Cadmium Liquor Maker Name Role Phone Meseret Griffin DO Primary Care Provider [phone] Reason for Visit * Reason Comments Med Refill Encounter Details Date Type Department Care Team (Late st Contact Info) Description 07/04/2020 Refill [facility] [address] [place], [place] [phone] Lucero Andrew MD [address] [place], [place] [phone] Primary hypothyroidism Social History Tobacco Use Types Packs/Day Years [...] as of this encounter Visit Diagnoses Diagnosis Primary hypothyroidism Unspecified hypothyroidism documented in this encounter Care Teams Cadmium Liquor Maker Relationship Specialty Start Date End Date Meseret Griffin DO [address] [place] [address] PCP - General 01/17/17 documented as of this encounter
--- OUTSIDE RECORDS SUMMARY | 2025-01-19 05:47 | XMS_ITS | Encounter Summary ---
Author Organization [facility] Address [address] [place] [address] Care Team Providers Care Development Chemist Name Role Phone EliasMeseret matta Unavailable [phone] Jihan Em DO Primary Care Provider [phone] Elia Dsouza MD Unavailable [phone] Reason for Visit * Reason Onset Date Comments Medication Refill 01/17/2021 Encounter Details Date Type Department Care Team (Late st Contact Info) Description 01/17/2021 Refill [facility] [address], [place] [address] Katheryn Oquendo, OBSERVER HELPER [address] [place] [address] Encounter for surveillance of contraceptive pills Social [...] PM EST Office Visit [facility] [address] [place] [phone] Jazmyne Dubose NP [address] [address] 01/29/2025 3:30 PM EST Office Visit [facility] [address], [place] [phone] Jojo Magallanes NP [address] [place] [address] 07/22/2025 2:00 PM EDT Office Visit [facility] [address] [place] [phone] Jazmyne Dubose NP [address] [place] [address] documented as of this encounter Visit Diagnoses Diagnosis Encounter for surveillance of contraceptive pills documented in this encounter Additional Health Concerns Infection Onset Date Last Indicated Resolved Time PUI COVID 10/19/2021 10/19/2021 10/20/2021 8:05 PM EST PUI COVID 09/24/2022 09/24/2022 09/24/2022 4:17 PM EDT PUI COVID 08/03/2023 08/03/2023 08/03/2023 2:05 PM EDT PUI COVID 08/11/2023 08/11/2023 08/11/2023 3:5 6 PM EDT PUI COVID 09/28/2023 09/28/2023 09/28/2023 11:3 1 AM EDT PUI COVID 08/13/2024 08/13/2024 08/13/2024 1:54 PM EDT documented as of this encounter Care Teams Development Chemist Relationship Specialty Start Date End Date Meseret Griffin DO PCP - Family Medicine 03/09/15 Jihan Em DO [address] [address] PCP - General Family Medicine 01/08/21 Elia Dsouza MD [place] [address] Physician Orthopedic Surgery 04/21/23 documented as of this encounter
[2025-01-19 05:48] LABS: Influenza A PCR NEGATIVE (Negative); Influenza B PCR NEGATIVE (Negative); Resp Syncy Virus RNA Qual PCR NEGATIVE (Negative); SARS COV2 PCR INHOUSE POSITIVE (Negative)
--- OUTSIDE RECORDS SUMMARY | 2025-01-19 05:48 | XMS_ITS | Clinical Summary ---
Author Organization [facility] Address [address] [place] [address] Phone Care Team Providers Care Wafer Fabrication Operator Name Role Phone Meseret Griffin DO Primary Care Provider [phone] Allergies Active Allergy Reactions Criticality Noted Date Comments Amoxicillin-Pot Clavulanate Hives Nystatin Rash,Hives Medium 12/22/2015 Medications insulin glargine (LANTUS) 100 UNIT/ML injection Inject 100 Units/mL under the skin. Active Continuous Blood Gluc Sensor (DEXCOM G5 MOB/G4 PLAT SENSOR) [facility] 7 Active GLUCAGON EMERGENCY 1 MG injection 8 Active HUMALOG ROSAMARIA KWIKPEN 100 UNIT/ML solution pen-injector 8 Active [id number]-NQ-LJDNCK 0.18/0.215/0.25 MG-25 MCG per tabletIndications: Dysmenorrhea TAKE 1 TABLET DAILY 84 tablet 3 9 Active HUMALOG 100 UNIT/ML injection 1 9 Active sertraline 100 MG tabletIndications: Adjustment disorder with mixed anxiety and depressed mood Take 1 tablet (100 mg total) by mouth daily. 30 tablet 11 9 Active albuterol HFA 108 (90 Base) MCG/ACT inhalerIndications :Wheezing Inhale 2 puffs every 4 (four) hours as needed for wheezing or shortness of breath. 1 Units 0 Active fluticasone HFA (Flovent HFA) 110 MCG/ACT inhalerIndications :Wheezing Inhale 2 puffs 2 (two) times a day for 14 days. Rinse mouth with water after use, do not swallow. 1 Units 0 Active LEVOTHYROXINE 112 MCG tabletIndications: Primary hypothyroidism TAKE 1/2 TABLET BY MOUTH DAILY 45 tablet 0 Active Active Problems Problem Noted Date Diagnosed Date Nevus 01/03/2020 Assessment & Plan (01/03/2020 12:26 PM EST): Follows with dermatology - plan for removal of nevus on leg Depression 01/05/2018 Wheezing 08/23/2016 Assessment & Plan (01/03/2020 12:27 PM EST): Tends to occur occasionally with URIs Adjustment disorder with mixed anxiety and depre ssed mood 09/04/2015 Assessment & Plan (01/03/2020 12:22 PM EST): Doing well on sertraline 100mg. She continues to see Veronica Herr Q2-3 weeks, more often when needed. We discussed decreasing her dose of sertraline possibly this summer, if things continue to go well. Dysmenorrhea 09/04/2015 Assessment & Plan (01/03/2020 12:22 PM EST): Stable on OCP. Sees [facility] regularly H/O Jeronimo thyroiditis 09/04/2015 Primary hypothyroidism 09/04/2015 Assessment & Plan (01/03/2020 12:22 PM EST): Managed by [facility] endocrinology Type 1 diabetes mellitus without complications 1 Assessment & Plan (01/03/2020 12:26 PM EST): Managed by [facility] endocrin Assessment & Plan (02/20/2018 1:50 PM EDT): Continue to moniter levels closely and follow coverage plan for high and low readings as directed by [facility] Immunizations Immunization Administration Dates Next Due DTaP 01/09/2003,,1998,05/19,1998 H1N1 09/30/2009 HPV, Quadrivalent 03/26/2013,09/19/2012,07/14/20 12 Hep A, ped/adol 09/09/2016 Hep B, ped/adol 1998,1998,1998 Hib (PRP-T) 07/09/1999, 8,1998,03/14 IPV 01/09/2003, 9,1998,03/14 Influenza, injectable, quadr ivalent, preservative free 08/08/2019,09/25/2018 Influenza, injectable, trivalent 017,09/09/2016,09/03/2015,08/02,12/14/2013,09/19/2012,11/12/2010 ,08/01/2009 MMR 01/10/2003,01/27/1999 Meningococcal Conj (Menactra) MCV4P 12/03/2010 Meningococcal Conjugate 09/03/2015 Tdap 12/03/2010 Varicella 07/14/2012,01/27/1999 Social History Tobacco Use Types Packs/Day Years [...] on file Sexual Orientation Not on file Last Filed Vital Signs Vital Sign Reading Time Taken Comments Blood Pressure 104/73 01/02/2020 9:27 AM EST Pulse 101 01/02/2020 9:27 AM EST Temperature 37.2 ??C (99 ??F) 12/25/2019 10:45 AM EST Respiratory Rate - - Oxygen Saturation 96% 12/25/2019 10:45 AM EST Inhaled Oxygen Concentration - - Weight 51.7 kg (114 lb) 01/02/2020 9:27 AM EST Height 150.6 cm (4' 11.29 ) 01/02/2020 9:[address] Body Mass Index 22.8 01/02/2020 9:27 AM EST Plan of Treatment Health Maintenance Due Date Last Done Comments Hepatitis A Vaccines (2 of 2 - 2-dose series) 03/10/2017 09/09/2016 DTaP,Tdap,and Td Vaccines (7 - Td or Tdap) 12/03/2020 12/03/2010, 01/09/2003, 07/09/1999, Additional history exists Influenza Vaccines (#1) 2024 08/08/20 19, 09/25/2018, 07/28/2017, Additional history exists COVID-19 Vaccine ( season) 2024 Hepatitis B Vaccines Completed 1998, 1998, 1998 HIB Vaccines Completed 07/09/1999, 06/28, 1998, Additional history exists IPV Vaccines Completed 01/09/2003, 12/1998, 1998, Additional history exists MMR Vaccines Completed 01/10/2003, 01/27/1999 Varicella Vaccines Completed 07/14/2012, 01/27/1999 HPV Vaccines Completed 03/26/2013, 08/29, 07/14/2012 Meningococcal Vaccine Completed 09/03/2015, 011 Men B Vaccine Aged Out No longer elig ible based on patient's age to complete this topic Pneumococcal Vaccine Aged Out No long er eligible based on patient's age to complete this topic Procedures * Due to [place] state law, this organization might not be sharing sensitive test results. Procedure Name Priority Date/Time Associated Diagnosis Comments CHLAMYDIA AND GONORRHEA, AMPLIFIED Routine 01/02/2020 10:17 AM EST Screen for sexually transmitted diseases from Last 3 Months or Most Recently Relevant to Health Maintenance Results * Due to [place] state law, this organization might not be sharing sensitive test results. * Chlamydia and Gonorrhoea, Amplified (01/02/2020 10:17 AM EST) Chlamydia trachomatis RNA, TMA NOT DETECTED NOT DETECTED [facility] Neisseria gonorrhoeae, ERROL NOT DETECTED NOT DETECTED [facility] [place] [facility] Comment [facility] [place] [facility] Comment: The analytical performance characteristics of this assay, when used to test SurePath(TM) specimens have been determined by [facility]. The modifications have not been cleared or approved by the FDA. This assay has been validated pursuant to the CLIA regulations and is used for clinical purposes. For additional information, please refer to https://education.[facility]/faq/JNK681 (This link is being provided for information/ educational purposes only.) Urine 01/02/2020 10:1 7 AM EST 01/03/2020 12:08 AM EST Narrative Resulting Agency Comment Performing Organization Information: ?Site ID: [id number] ?Name: [facility] ?Address: [address] [place] [address], [facility] [place] [address] ?Director: Maurice Green Meseret Griffin DO LAB MICROBIOLOGY - GENERAL ORD ERABLES Final Result [facility] from Last 3 Months or Most Recently Relevant to Health Maintenance Care Teams Wafer Fabrication Operator Relationship Specialty Start Date End Date Meseret Griffin DO [address] [place] [address] PCP - General 01/17/17
--- OUTSIDE RECORDS SUMMARY | 2025-01-19 05:48 | XMS_ITS | Encounter Summary ---
Author Organization [facility] Address [address] [place] [address] Care Team Providers Care Graphic Design Manager Name Role Phone Meseret Griffin Unavailable [phone] Jihan Em DO Primary Care Provider [phone] Elia Dsouza MD Unavailable [phone] Reason for Visit * Reason Comments Medication Refill Encounter Details Date Type Department Care Team (Late st Contact Info) Description 06/12/2023 Refill [facility] [place] [phone] [place] [address] Social History Tobacco Use Types Packs/Day Years Used Date Smoking Tobacco: Never Smokeless Tobacco: Never Alcohol Use Standard Drinks/Week Comments No 0 (1 standard drink = 0.6 oz pur e alcohol) Depression Answer Date Recorded PHQ-9 Total Score 12 04/14/2023 [place] Depression Scale Score Not o n file 04/14/2023 EPDS: The thought of harming myself has occurred to me Not on file 04/14/2023 PHQ-A: In the past year have you felt depressed or sad most days, even if you felt okay sometimes? Not on file 04/14/2023 PHQ-A: If you are experienci ng any of the problems on this form, how difficult have these problems made it for you to do your work, take care of things at home or get along with other people? Not on file 04/14/2023 PHQ-A: Has there been a time in the past month when you have had serious thoughts about ending your life? Not on file 03/28 PHQ-A: Have you ever, in you r whole life, tried to kill yourself or made a suicide attempt? Not on file 04/14/2023 PHQ9/A: Thoughts that you wo uld be better off , or of hurting yourself in some way? No 04/14/2023 Adolescent Depression Answer Date Recor ded PHQ-9 Total Score 12 04/14/2023 [place] Depression Scale Score Not o n file 04/14/2023 EPDS: The thought of harming myself has occurred to me Not on file 04/14/2023 PHQ-A: In the past year have you felt depressed or sad most days, even if you felt okay sometimes? Not on file 04/14/2023 PHQ-A: If you are experienci ng any of the problems on this form, how difficult have these problems made it for you to do your work, take care of things at home or get along with other people? Not on file 04/14/2023 PHQ-A: Has there been a time in the past month when you have had serious thoughts about ending your life? Not on file 03/28 PHQ-A: Have you ever, in you r whole life, tried to kill yourself or made a suicide attempt? Not on file 04/14/2023 PHQ9/A: Thoughts that you wo uld be better off , or of hurting yourself in some way? No 04/14/2023 Comments No Sex and Gender Information Value [...] Description 01/21/2025 1:30 PM EST Office Visit [facility] [address] [place] [phone] Jazmyne Dubose, HAM CLERK [address] [facility] [address] [place] [address] 01/29/2025 3:30 PM EST Office Visit [facility] [address] [place], [facility] [place] [address] Jojo Magallanes, SALMA [address] [place] [address] 07/22/2025 2:00 PM EDT Office Visit [facility] [address] [place] [phone] Jazmyne Dubose, SALMA [address] [address] documented as of this encounter Visit Diagnoses Not on filedocumented in this encounter Additional Health Concerns Infection Onset Date Last Indicated Resolved Time PUI COVID 08/03/2023 08/03/2023 08/03/2023 2:05 PM EDT PUI COVID 08/11/2023 08/11/2023 08/11/2023 3:56 PM EDT PUI COVID 09/28/2023 09/28/2023 09/28/2023 11:3 1 AM EDT PUI COVID 08/13/2024 08/13/2024 08/13/2024 1:54 PM EDT documented as of this encounter Care Teams Graphic Design Manager Relationship Specialty Start Date End Date Meseret Griffin DO PCP - Family Medicine 03/09/15 Jihan Em DO [address] [place] [address] PCP - General Family Medicine 01/08/21 Elia Dsouza MD [place] [address] Physician Orthopedic Surgery 04/21/23 documented as of this encounter
--- OUTSIDE RECORDS SUMMARY | 2025-01-19 05:48 | XMS_ITS | Encounter Summary ---
Author Organization [facility] Address [address] [place] [address] Care Team Providers Care Video Production Engineer Name Role Phone Elias, Meseret Unavailable [phone] Jihan Em DO Primary Care Provider [phone] Elia Dsouza MD Unavailable Reason for Visit * Reason Onset Date Comments Medication Refill 10/17/2022 Encounter Details Date Type Department Care Team (Late st Contact Info) Description 10/17/2022 Refill [facility] [address] [place] [phone] Michelle Yoder DO [address] [place] [address] Encounter for surveillance of contraceptive pills Social [...] PM EST Office Visit [facility] [address] [place] [phone] Jazmyne Dubose, SALMA [address] [address] 01/29/2025 3:30 PM EST Office Visit [facility] [address] [place], [facility] [place] [address] Jojo Magallanes NP [address] [place] [address] 07/22/2025 2:00 PM EDT Office Visit [facility] [address] [place] [phone] Jazmyne Dubose NP [address] [place] [address] documented as of this encounter Visit Diagnoses [...] documented as of this encounter Care Teams Video Production Engineer Relationship Specialty Start Date End Date Meseret Griffin DO PCP - Family Medicine 03/09/15 Jihan Em DO [address] [place] [address] PCP - General Family Medicine 01/08/21 Elia Dsouza MD [address] [place] [address] Physician Orthopedic Surgery 04/21/23 documented as of this encounter
--- OUTSIDE RECORDS SUMMARY | 2025-01-19 05:48 | XMS_ITS | Encounter Summary ---
Author Organization [facility] Address [address] [place] [address] Care Team Providers Care Telescope Repairer Name Role Phone EliasMeseret matta Unavailable [phone] Jihan Em DO Primary Care Provider [phone] Elia Dsouza MD Unavailable [phone] Reason for Visit * Reason Comments Medication Refill Encounter Details Date Type Department Care Team (Late st Contact Info) Description 10/16/2022 Refill [facility] [address] [place] [phone] Michelle Yoder DO [address] [place] [address] Encounter for surveillance of contraceptive pills Social [...] encounter Miscellaneous Notes * Telephone Encounter - Rinku Bobby DO - 10/18/2022 10:30 AM EST This pt needs an annual special event assistant appt with Dr Yoder for Nov 2022. documented in this encounter Plan of Treatment Upcoming Encounters Date Type Department Care Team (Late st Contact Info) Description 01/21/2025 1:30 PM EST [facility] [address] [place] [phone] Jazmyne Dubose NP [address] [place] [address] 01/29/2025 3:30 PM EST [facility] [address] [phone] Jojo Magallanes NP [address] [place] [address] 07/22/2025 2:00 PM EDT [facility] [address] [place] [phone] Jazmyne Dubose NP [address] [place] [address] documented as of this encounter Visit Diagnoses [...] documented as of this encounter Care Teams Telescope Repairer Relationship Specialty Start Date End Date Meseret Griffin DO PCP - Family Medicine 03/09/15 Jihan Em DO [address] [place] [address] PCP - General Family Medicine 01/08/21 Elia Dsouza MD [place] [address] Physician Orthopedic Surgery 04/21/23 documented as of this encounter
--- OUTSIDE RECORDS SUMMARY | 2025-01-19 05:48 | XMS_ITS | Encounter Summary ---
Author Organization [facility] Address [address] [place] [address] Care Team Providers Care Field Instructor Name Role Phone Meseret Griffin Unavailable [phone] Jihan Em DO Primary Care Provider [phone] Elia Dsouza MD Unavailable [phone] Reason for Visit * Reason Comments Medication Refill Encounter Details Date Type Department Care Team (Late st Contact Info) Description 05/28/2023 Refill [facility] [place] [phone] [place] [address] Social History Tobacco Use Types Packs/Day Years Used Date Smoking Tobacco: Never Smokeless Tobacco: Never Alcohol Use Standard Drinks/Week Comments No 0 (1 standard drink = 0.6 oz pur e alcohol) Depression Answer Date Recorded PHQ-9 Total Score 12 04/14/2023 [place] Depression Scale Score Not o n file [...] Recor ded PHQ-9 Total Score 12 04/14/2023 [place] Depression Scale Score Not o n file [...] Description 01/21/2025 1:30 PM EST Office Visit [facility] [address] [place] [phone] Jazmyne Dubose, BROOCH MAKER NOVELTY 49 [facility] [address] [place] [address] 01/29/2025 3:30 PM EST [facility] [address] [place], [facility] [place] [address] Jojo Magallanes, SALMA [address] [place] [address] 07/22/2025 2:00 PM EDT Office Visit [facility] [address] [place] [phone] Jazmyne Dubose, SALMA [address] [address] documented as of this encounter Visit Diagnoses Not on filedocumented in this encounter Additional Health Concerns Infection Onset Date Last Indicated Resolved Time PUI COVID 08/03/2023 08/03/2023 08/03/2023 2:05 PM EDT PUI COVID 08/11/2023 08/11/2023 08/11/2023 3:56 PM EDT PUI COVID 09/28/2023 09/28/2023 09/28/2023 11:3 1 AM EDT PUI COVID 08/13/2024 08/13/2024 08/13/2024 1:54 PM EDT documented as of this encounter Care Teams Field Instructor Relationship Specialty Start Date End Date Meseret Griffin DO PCP - Family Medicine 03/09/15 Jihan Em DO [address] [place] [address] PCP - General Family Medicine 01/08/21 Elia Dsouza [place] [address] Physician Orthopedic Surgery 04/21/23 documented as of this encounter
--- OUTSIDE RECORDS SUMMARY | 2025-01-19 05:48 | XMS_ITS | Encounter Summary ---
Author Organization [facility] Address [address] [place] [address] Care Team Providers Care Chemical Dependency Nurse Name Role Phone Elias, Meseret Unavailable [phone] Jihan Em DO Primary Care Provider [phone] Elia Dsouza MD Unavailable [phone] Reason for Visit * Reason Onset Date Comments Medication Adherence 05/28/2021 Encounter Details Date Type Department Care Team (Late st Contact Info) Description 05/28/2021 Telephone [facility] [address] [place] [phone] Jihan Em DO [address] [place] [address] Medication Adherence Social History Tobacco Use Types Packs/Day Years [...] encounter Miscellaneous Notes * Telephone Encounter - Timoteo Simms - 05/28/2021 10:39 AM EDT LVM for patient to return my call on my direct line documented in this encounter Plan of Treatment Upcoming Encounters Date Type Department Care Team (Late st Contact Info) Description 01/21/2025 1:30 PM EST Office Visit [facility] [address] [place] [phone] Jazmyne Dubose NP [address] [place] [address] 01/29/2025 3:30 PM EST Office Visit [facility] [address] [place] [phone] Jojo Magallanes NP [address] [place] [address] 07/22/2025 2:00 PM EDT Office Visit [facility] [address] [place] [phone] Jazmyne Dubose NP [address] [place] [address] documented as of this encounter Visit Diagnoses [...] documented as of this encounter Care Teams Chemical Dependency Nurse Relationship Specialty Start Date End Date Meseret Griffin DO PCP - Family Medicine 03/09/15 Jihan Em DO [address] [place] [address] PCP - General Family Medicine 01/08/21 Elia Dsouza MD [place] [address] Physician Orthopedic Surgery 04/21/23 documented as of this encounter
--- OUTSIDE RECORDS SUMMARY | 2025-01-19 05:48 | XMS_ITS | Encounter Summary ---
Author Organization [facility] Address [address] [place] [address] Care Team Providers Care Seo Expert Name Role Phone Meseret Griffin DO Unavailable [phone] Meseret Griffin DO Primary Care Provider [phone] Jihan Em DO Primary Care Provider [phone] Meseret Griffin DO Primary Care Provider [phone] Elia Dsouza MD Unavailable [phone] Encounter Details Date Type Department Care Team (Late st Contact Info) Description 06/28/2016 Orders Only Meseret Griffin DO [address] [place] [address] Syncope (Primary Dx) Social History Tobacco Use Types Packs/Day Years [...] PM EST Office Visit [facility] [address] [place] [phone] Jazmyne Dubose NP 49 [facility] [address] [place] [address] 01/29/2025 3:30 PM EST Office Visit [facility] [address], [place] [address] Jojo Magallanes NP [address] [place] [address] 07/22/2025 2:00 PM EDT Office Visit [facility] [address] [place] [phone] Jazmyne Dubose NP [address] [address] documented as of this encounter Results * Sedimentation rate, automated (06/28/2016 2:14 PM EDT) Pathologist [facility] Sed Rate 10 0 - 20 mm/hr 06/28/2016 8:49 PM EDT [facility] Blood specimen (specimen) Venipuncture / Unknown 06/28/2016 2:14 PM EDT 06/28/2016 2:14 PM EDT us Meseret Griffin DO LAB BLOOD ORDERABLES Final Res ult [facility] [address] [place], [place] * CBC and Auto Differential (06/28/2016 2:14 PM EDT) Pathologist [facility] WBC 7.3 4.8 - 11.2 10*3/??L 06/28/2016 7:53 PM EDT [facility] RBC 4.63 3.60 - 5.40 10*6/??L 06/28/2016 7:53 PM EDT [facility] HGB 14.0 12.0 - 15.8 g/dL 06/28/2016 7:53 PM EDT [facility] HCT 39.9 36.0 - 48.0 % 06/28/2016 7:53 PM EDT [facility] MCV 86.2 82.0 - 98.0 fL 06/28/2016 7:53 PM EDT [facility] MCH 30.3 27.0 - 35.0 pg 06/28/2016 7:53 PM EDT [facility] MCHC 35.2 32.0 - 37.0 g/dL 06/28/2016 7:53 PM EDT [facility] RDW 12.8 9.0 - 17.9 % 06/28/2016 7:53 PM EDT [facility] PLT 363 150 - 400 10*3/??L 06/28/2016 7:53 PM EDT [facility] MPV 8.5 7.0 - 14.0 fL 06/28/2016 7:53 PM EDT [facility] Neut % 53.7 45.0 - 85.0 % 06/28/2016 7:53 PM EDT [facility] Lymph % 37.6 15.0 - 45.0 % 06/28/2016 7:53 PM EDT [facility] [place] % 6.8 0.0 - 12.0 % 06/28/2016 7:53 PM EDT [facility] Eos % 1.3 0.0 - 7.0 % 06/28/2016 7:53 PM EDT [facility] Baso % 0.6 0.0 - 3.0 % 06/28/2016 7:53 PM EDT [facility] Neut # 3.9 10*3/??L 06/28/2016 7:53 PM EDT [facility] NRBC% 0 0 /100 WBC /100 WBC 06/28/2016 7:53 PM EDT [facility] Blood specimen (specimen) Venipuncture / Unknown 06/28/2016 2:14 PM EDT 06/28/2016 2:14 PM EDT Meseret Griffin DO LAB BLOOD ORDERABLES Final Res ult [facility] [address] [place], [place] documented in this encounter Visit Diagnoses Diagnosis Syncope- Primary Syncope and collapse documented in this encounter Additional Health Concerns [...] documented as of this encounter Care Teams Seo Expert Relationship Specialty Start Date End Date Meseret Griffin DO PCP - Family Medicine 03/09/15 Mseeret Griffin DO PCP - General 03/09/15 05/01/20 Jihan Em DO [address] [place] [address] PCP - General Family Medicine 01/08/21 Meseret Griffin DO [address] [place] [address] PCP - General Pediatrics 12/03/20 01/07/21 Elia Dsouza MD [address] [place] [address] Physician Orthopedic Surgery 04/21/23 documented as of this encounter
--- OUTSIDE RECORDS SUMMARY | 2025-01-19 05:48 | XMS_ITS | Encounter Summary ---
Author Organization [facility] Address [address] [place] [address] Care Team Providers Care Crossing Gateman Name Role Phone Meseret Griffin DO Unavailable [phone] Meseret Griffin DO Primary Care Provider [phone] Jihan Em DO Primary Care Provider [phone] Meseret Griffin DO Primary Care Provider [phone] Elia Dsouza MD Unavailable [phone] Reason for Visit * Reason Onset Date Comments Results 06/15/2018 Encounter Details Date Type Department Care Team (Late st Contact Info) Description 06/15/2018 Telephone [facility] [address], [place] [address] Pamela Navarrete, CN [address] [place] [address] Results Social History Tobacco Use Types Packs/Day Years [...] encounter Miscellaneous Notes * Telephone Encounter - Marjorie Dedeus, RN - 06/15/2018 10:29 AM EDT Pt aware of all results from 06/08/18 * Telephone Encounter - Andreina Scalesson - 06/15/2018 10:24 AM EDT Pt states she had a test over a week ago and would like a call with results documented in this encounter Plan of Treatment Upcoming Encounters Date Type Department Care Team (Late st Contact Info) Description 01/21/2025 1:30 PM EST Office Visit [facility] [address] [place] [phone] Jazmyne Dubose NP [address] [place] [address] 01/29/2025 3:30 PM EST [facility] [address] [place] [address], [place] [address] Jojo Magallanes NP [address] [place] [address] 07/22/2025 2:00 PM EDT [facility] [address] [place] [phone] Jazmyne Dubose NP [address] [place] [address] documented as of this encounter Visit Diagnoses [...] documented as of this encounter Care Teams Crossing Gateman Relationship Specialty Start Date End Date Meseret Griffin DO PCP - Family Medicine 03/09/15 Meseret Griffin DO PCP - General 03/09/15 05/01/20 Jihan Em DO [address] [place] [address] PCP - General Family Medicine 01/08/21 Meseret Griffin DO [address] [place] [address] PCP - General Pediatrics 12/03/20 01/07/21 Elia Dsouza [place] [address] Physician Orthopedic Surgery 04/21/23 documented as of this encounter
--- OUTSIDE RECORDS SUMMARY | 2025-01-19 05:48 | XMS_ITS | Encounter Summary ---
Author Organization [facility] Address [address] [place] [address] Phone Care Team Providers Care Lollypop Machine Operator Name Role Phone Meseret Griffin DO Primary Care Provider Encounter Details Date Type Department Care Team (Late st Contact Info) Description 10/10/2017 Conversion Encounter [facility] [address] [place] [address] Meseret Griffin DO [address] [place] [address] Social History Tobacco Use Types Packs/Day Years Used Date Smoking Tobacco: Never Assessed Alcohol Use Standard Drinks/Week Comments No 0 (1 standard drink = 0.6 oz pur e alcohol) Comments Unknown Sex and Gender Information Value Date Recorded Sex Assigned at Not on file Legal Sex Female 4:50 PM EST Gender Identity Not on file Sexual Orientation Not on file documented as of this encounter Plan of Treatment Not on file documented as of this encounter Visit Diagnoses Not on filedocumented in this encounter Care Teams Lollypop Machine Operator Relationship Specialty Start Date End Date Meseret Griffin DO [address] [place] [address] PCP - General 01/17/17 documented as of this encounter
--- OUTSIDE RECORDS SUMMARY | 2025-01-19 05:48 | XMS_ITS | Encounter Summary ---
Author Organization [facility] Address [address] [place] [address] Care Team Providers Care Concrete Engineer Name Role Phone Meseret Griffin Unavailable [phone] Jihan Em DO Primary Care Provider [phone] Elia Dsouza MD Unavailable [phone] Encounter Details Date Type Department Care Team (Late st Contact Info) Description 07/09/2022 Pharmacy Visit [facility] [address] [place] [phone] Social History Tobacco Use Types Packs/Day Years [...] Description 01/21/2025 1:30 PM EST Office Visit [facility] [address] [place] [phone] Jazmyne Dubose NP [address] [place] [address] [address] [place] [address] 01/29/2025 3:30 PM EST Office Visit [facility] [address], [place] [phone] Jojo Magallanes, GROUP SOCIAL WORKER [address] [place] [address] 07/22/2025 2:00 PM EDT Office Visit [facility] [address] [place] [phone] Jazmyne Dubose, SALMA [address] [place] [address] [address] [place] [address] documented as of this encounter Visit Diagnoses Not on filedocumented in this encounter Additional Health Concerns Infection Onset Date Last Indicated Resolved Time PUI COVID 09/24/2022 09/24/2022 09/24/2022 4:17 PM EDT PUI COVID 08/03/2023 08/03/2023 08/03/2023 2:05 PM EDT PUI COVID 08/11/2023 08/11/2023 08/11/2023 3:56 PM EDT PUI COVID 09/28/2023 09/28/2023 09/28/2023 11:3 1 AM EDT PUI COVID 08/13/2024 08/13/2024 08/13/2024 1:54 PM EDT documented as of this encounter Care Teams Concrete Engineer Relationship Specialty Start Date End Date Meseret Griffin DO PCP - Family Medicine 03/09/15 Jihan Em DO [address] [place] [address] PCP - General Family Medicine 01/08/21 Elia Dsouza MD [address] [place] [address] Physician Orthopedic Surgery 04/21/23 documented as of this encounter
--- OUTSIDE RECORDS SUMMARY | 2025-01-19 05:48 | XMS_ITS | Encounter Summary ---
Author Organization [facility] Address [address] [place] [address] Care Team Providers Care Spa Concierge Name Role Phone Elias, Meseret SONI Unavailable [phone] Jihan Em DO Primary Care Provider [phone] Elia Dsouza MD Unavailable [phone] Reason for Visit * Reason Comments Medication Refill Encounter Details Date Type Department Care Team (Late st Contact Info) Description 11/28/2021 Refill [facility] [address], [place] [phone] Katheryn Oquendo, ARCHITECTURAL TECHNICIAN [address] [place] [address] Encounter for surveillance of contraceptive pills Social [...] encounter Miscellaneous Notes * Telephone Encounter - Ava Rollins - 11/30/2021 4:47 PM EST Pt will c/b to schedule * Telephone Encounter - Katharine Almonte RN - 11/30/2021 4:06 PM EST Pt needs annual first, please schedule and will order new rx under provider she is seeing. Thanks! documented in this encounter Plan of Treatment Upcoming Encounters Date Type Department Care Team (Late st Contact Info) Description 01/21/2025 1:30 PM EST Office Visit [facility] [address] [place] [phone] Jazmyne Dubose NP [address] [place] [address] 01/29/2025 3:30 PM EST [facility] [address] [place] [address], [place] [address] Jojo Magallanes NP [address] [place] [address] 07/22/2025 2:00 PM EDT Office Visit [facility] [address] [place] [phone] Jazmyne Dubose NP [address] [place] [address] documented as of this encounter Visit Diagnoses [...] documented as of this encounter Care Teams Spa Concierge Relationship Specialty Start Date End Date Meseret Griffin DO PCP - Family Medicine 03/09/15 Jihan Em DO [address] [place] [address] PCP - General Family Medicine 01/08/21 Elia [place] [address] Physician Orthopedic Surgery 04/21/23 documented as of this encounter
--- OUTSIDE RECORDS SUMMARY | 2025-01-19 05:48 | XMS_ITS | Patient Health Record ---
Author Organization [facility] Address [address] [place] [address] Care Team Providers Care Dancing Master Name Role Phone Meseret Griffin DO Primary Care Provider Unavail able Allergies Allergen (clinical drug ingredient) Drug/Non Drug Allergy documented on EMR Reaction Allergy Type Onset Date Status nystatin Nystatin hives Drug Allergy Active Reason For Referral No Information Medications Medication SIG (Take, Route, Frequency, Duration) Notes Start Date End Date Status Levothyroxine Sodium 112mcg 1/2 tablet o n an empty stomach in the morning Orally Once a day Active Norgestimate-Ethinyl Estradiol Active ProAir HFA 108 (90 Base) MCG/ACT 2 puffs as needed Inhalation every 6 hrs Active Zoloft 50 MG 1 tablet Orally Once a day for 30 day(s) Active Lantus SoloStar 100 UNIT/ML as directed Subcutaneous Active HumaLOG KwikPen 100 UNIT/ML as directed Subcutaneous Active Dexcom G4 Sensor - as directed Active Social History Tobacco Use: Social History Observation Description Date Details (start date - stop date) Never Smoker NA - NA Tobacco Use/Smoking Question Answer Notes Patient is a: never smoker Plan Of Treatment No Information Insurance Providers Payer Name Payer Address Payer Phone Subscriber Number Group Number Insured Name Patient Relationship to Insured Coverage Start Date Coverage End Date o [employer] [address] [place] [address] [phone] [id number] [place] Child - Insured does not have Financial Responsibility (includes legally adopted child) 6 Medical (General) History Medical History History ICD Code asthma Hashimotos disease anxiety panic disorder depression diabetes mellitus migraine headaches Surgical History Surgery Date(Month/Year) tonsillectomy and adenoidectomy 2006
--- OUTSIDE RECORDS SUMMARY | 2025-01-19 05:48 | XMS_ITS | Encounter Summary ---
Author Organization [facility] Address [address] [place] [address] Phone Care Team Providers Care Assembler Clip On Sunglasses Name Role Phone Meseret Griffin DO Primary Care Provider [phone] Reason for Visit * Reason Comments Med Refill Encounter Details Date Type Department Care Team (Late st Contact Info) Description 06/15/2019 Refill [facility] [address] [place] [address] Lucero Andrew MD [address] [place] [address] Anxiety Social History Tobacco Use Types Packs/Day Years [...] as of this encounter Visit Diagnoses Diagnosis Anxiety Anxiety state, unspecified documented in this encounter Care Teams Assembler Clip On Sunglasses Relationship Specialty Start Date End Date Meseret Griffin DO [address] [place] [address] PCP - General 01/17/17 documented as of this encounter
--- OUTSIDE RECORDS SUMMARY | 2025-01-19 05:48 | XMS_ITS | Encounter Summary ---
Author Organization [facility] Address [address] [place] [address] Care Team Providers Care Rolls Baker Name Role Phone Meseret Griffin Unavailable [phone] Jihan Em DO Primary Care Provider [phone] Elia Dsouza MD Unavailable [phone] Encounter Details Date Type Department Care Team (Late st Contact Info) Description 04/06/2022 Pharmacy Visit [facility] [address] [place] [phone] Social History Tobacco Use Types Packs/Day Years [...] Description 01/21/2025 1:30 PM EST Office Visit [facility] [address] [place] [phone] Jazmyne Dubose NP [address] [place] [address] [address] [place] [address] 01/29/2025 3:30 PM EST Office Visit [facility] [address] [place], [place] [phone] Jojo Magallanes, RESIDENCE DIRECTOR [address] [place] [address] 07/22/2025 2:00 PM EDT Office Visit [facility] [address] [place] [phone] Jazmyne Dubose, SALMA [address] [place] [address] [address] [place] [address] documented as of this encounter Visit Diagnoses [...] documented as of this encounter Care Teams Rolls Baker Relationship Specialty Start Date End Date Meseret Griffin DO PCP - Family Medicine 03/09/15 Jihan Em DO [address] [place] [address] PCP - General Family Medicine 01/08/21 Elia Dsouza MD [address] [place] [address] Physician Orthopedic Surgery 04/21/23 documented as of this encounter
--- OUTSIDE RECORDS SUMMARY | 2025-01-19 05:48 | XMS_ITS | Clinical Summary ---
Author Organization [facility] Address [phone] Counts include 234 beds at the [facility] [place] [address] Care Team Providers Care Bike Technician Name Role Phone Jihan Em DO Primary Care Provider [phone] Social History Tobacco Use Types Packs/Day Years Used Date Smoking Tobacco: Never Assessed Education Answer Date Recorded Are you interested in more education? Not on shimon e 11/29/2023 Are you concerned about learning? Not on file 11/29/2023 No 11/29/2023 No 11/29/2023 Digital Access Answer Date Recorded No 11/29/2023 No 11/29/2023 Reliable internet access at home? Not on file 11/29/2023 Device with a working camera? Not on file Sex and Gender Information Value Date Recorded Sex Assigned at Not on file Gender Identity Not on file Sexual Orientation Not on file Plan of Treatment Not on file Medical Devices Not on file Care Teams Bike Technician Relationship Specialty Start Date End Date Jihan Em DO [address] [place] [address] PCP - General 11/29/23 Additional Source Comments The information contained in this document represents components of the legal health record. It is not the complete legal health record.[facility]
--- OUTSIDE RECORDS SUMMARY | 2025-01-19 05:48 | XMS_ITS | Encounter Summary ---
Author Organization [facility] Address [address] [place] [address] Care Team Providers Care Cow Tender Name Role Phone Meseret Griffin DO Unavailable [phone] Meseret Griffin DO Primary Care Provider Jihan Em DO Primary Care Provider [phone] Meseret Griffin DO Primary Care Provider Elia Dsouza MD Unavailable [phone] Reason for Visit * Reason Onset Date Comments test result 08/24/2018 Encounter Details Date Type Department Care Team (Late st Contact Info) Description 08/24/2018 Telephone [facility] [address], [facility] [place] [address] Lauren Parish, CN [address] [place] [address] test result Social History Tobacco Use Types Packs/Day Years [...] Miscellaneous Notes * Telephone Encounter - Marjorie Meza RN - 08/24/2018 1:05 PM EDT Spoke with pt, aware of message from BLAINE Chauhan. Pt states understanding, agreeable to plan. Pt aware to call back if treatment does not improve s/s. * Telephone Encounter - Andreina Tuttle - 08/24/2018 1:02 PM EDT Pt returned call- transferred to office * Telephone Encounter - Marjorie Meza RN - 08/24/2018 1:01 PM EDT LVM for pt to call back. * Telephone Encounter - Marjorie Meza RN - 08/24/2018 11:04 AM EDT Pt's vaginitis panel was negative, I'm assuming nothing will be called in correct? * Telephone Encounter - Andreina Tuttle - 08/24/2018 10:22 AM EDT Pt had test done 2 days ago and she stated she hasn't received a call back and a prescription has not been called in. Pt informed as soon as test results are received - she will be called. Pt would like a call back documented in this encounter Plan of Treatment Upcoming Encounters Date Type Department Care Team (Late st Contact Info) Description 01/21/2025 1:30 PM EST Office Visit [facility] [address] [place] [phone] Jazmyne Dubose NP [address] [facility] [address] [place] [address] 01/29/2025 3:30 PM EST Office Visit [facility] [address], [place] [address] Jojo Magallanes, SALMA [address] [place] [address] 07/22/2025 2:00 PM EDT Office Visit [facility] [address] [place] [phone] Jazmyne Dubose, SALMA [address] [address] documented as of this encounter Visit Diagnoses [...] documented as of this encounter Care Teams Cow Tender Relationship Specialty Start Date End Date Meseret Griffin DO PCP - Family Medicine 03/09/15 Meseret Griffin DO PCP - General 03/09/15 05/01/20 Jihan Em DO [address],[place] [address] PCP - General Family Medicine 01/08/21 Meseret Griffin DO [address] [place] [address] PCP - General Pediatrics 12/03/20 01/07/21 Elia Dsouza MD [address] [place] [address] Physician Orthopedic Surgery 04/21/23 documented as of this encounter
[2025-01-19 06:19] VITALS: BP 111/74; PULSE 93; RESP 20; TEMP 36.7; O2SAT 100
--- NOTE | 2025-01-19 06:19 | PC.NURSE ---
iv removed at discharge pt calm and cooperative pt provided with work note and discharge packet family at bedside for ride home
== END 2025-01-19 06:20 | disposition home or self-care (01) ==
PROVIDERS: Emergency Provider Emergency Medicine
DX: U07.1 COVID-19 (principal); E86.0 Dehydration; R11.2 Nausea with vomiting, unspecified; E10.9 Type 1 diabetes mellitus without complications; E03.9 Hypothyroidism, unspecified
CPT/HCPCS: 0241U; 36415; 80048; 80076; 80307; 82010; 83690; 83735; 84702; 85025; 96361; 96374; 99284; J0737